=== PATIENT | female | born 1995 | race Caucasian/White ===

== ENCOUNTER 2018-11-16 02:37 | Emergency (ER) | payer SELFPAY ==
[2018-11-16 02:38] VITALS: BP 111/77; PULSE 112; RESP 18; TEMP 36.6; O2SAT 97; BMI 21.4
--- NOTE | 2018-11-16 02:57 | ED.DCSUM_ITS ---
History of Present Illness Chief Complaint: Anxiety Informant: Patient Narrative: Just prior to arrival the patient had sounds like a panic attack. She was anxious and thrashing about and difficult to control. She was punching and kicking her friends and hard to calm down. She is having a hard time sleeping tonight after they went to [facility]. She denies any illicit substances. No significant stimulants. She is never had this happen before. They were able to finally calm her down after EMS brought her in. Currently she feels back to normal. She is never had this happen before. She is unsure what triggered it. She has not been getting much sleep. Denies any other symptoms. Past Medical History - Allergies and Home Meds Allergies/Adverse Reactions: Allergies No Known Allergies Allergy (Verified 11/16/18 02:41) Prior records reviewed: Yes Past Medical History: None Surgical History: noncontributory Lives: With Family, Friends Smoking Status: Current every day smoker Alcohol: Rare Drugs: None Review of Systems General: Denies: Chills, Fever, Sweats Eyes: Denies: Visual changes - bilaterally, Diplopia ENT: Denies: Rhinorrhea, Sore throat Cardiovascular: Denies: Chest pain, Palpitations Respiratory: Denies: Dyspnea, Cough, Dyspnea on exertion Gastrointestinal: Denies: Abdominal pain, Nausea, Vomiting, Diarrhea, Melena, Hematochezia Genitourinary: Denies: Dysuria, Hematuria, Frequency Musculoskeletal: Denies: Back pain, Extremity Pain Skin: Denies: Rash, Wounds Neurological: Denies: Headache, Weakness, Numbness Psych: Reports: Anxiety Physical Exam Vital Signs/Narrative: Vital Signs Temp Pulse Resp BP Pulse Ox 11/16/18 02:38 98 F 112 H 18 111/77 97 General: Well nourished, Well developed, No Acute Distress Head: Normocephalic, Atraumatic Eyes: Perrl, EOMI ENT: Moist mucous membranes, No rhinorrhea Neck: Supple, Nontender Cardiovascular: Regular rhythm, No murmurs, Tachycardia Respiratory: No distress, CTA bilaterally, Chest nontender Abdomen: Soft, Nontender, Nondistended, Normal bowel sounds Back: Nontender, Normal Inspection Extremities: Nontender, No edema Skin: Normal color, No rash Neurological: Alert, Oriented x3, Cranial nerves II-XII grossly intact, Normal Strength, Normal Sensation Psychological: Normal affect, Normal Mood Diagnostic/Tx/Re-eval - Medical Decision Making I feel the patient had a panic attack. Given 2 Benadryl tablets. Will be given follow-up with a local doctor she is recently moved here from [place]. I do not think she needs a workup. I think she has had a panic attack tonight. Instructed to try to get more sleep. ED Disposition - Plan for ED Patient: Disposition: Home or Assisted Living Diagnosis: Panic attack Instructions: ED Panic Attack Referrals: Mina Guthrie DO [NON CLINICAL AFFILIATE] -
[2018-11-16 03:01] VITALS: PULSE 109; RESP 16; O2SAT 99
[2018-11-16] MEDS: DiphenhydrAMINE 25 MG Capsule 50 MG PO (03:01)
== END 2018-11-16 03:11 | disposition home or self-care (01) ==
PROVIDERS: Emergency Provider Emergency Medicine
DX: F41.0 Panic disorder [episodic paroxysmal anxiety] (principal); F17.200 Nicotine dependence, unspecified, uncomplicated
CPT/HCPCS: 99284